=== PATIENT | female | born 1965 | race Hispanic/Latino ===

== ENCOUNTER 2021-09-14 18:55 | Emergency (ER) | payer SELFPAY ==
[2021-09-14 20:46] LABS: Urine Blood Trace-lysed (Negative); Urine Glucose Negative (Negative); Urine Protein Negative (Negative); Urine Specific Gravity 1.015 (1.005-1.030)
[2021-09-14 20:53] LABS: Urine Specific Gravity/Preg 1.015 (1.005-1.030)
[2021-09-14] MEDS ORDERED: ONDANSETRON 4 MG/2 ML VIAL ONE (21:38)
[2021-09-14 21:39] LABS: Absolute Lymphocytes (CBC) 2.6 K/uL (0.7-4.9); Hematocrit 40.3 % (36.0-45.0); Lymphocytes % 35.6 % (15.3-44.8); MPV 7.7 fL (7.6-11.3); RBC Red Blood Cell Count 4.62 M/uL (3.86-4.86)
[2021-09-14] MEDS ORDERED: FAMOTIDINE 20 MG/2 ML VIAL IV ONE (21:39)
[2021-09-14 21:42] LABS: Urine Bacteria NONE SEEN /HPF (<20); Urine RBC NONE SEEN /HPF (NONE SEEN)
[2021-09-14 21:54] LABS: Albumin 3.9 g/dL (3.4-5.0); Bilirubin Total 0.4 mg/dL (0.2-1.0); Potassium 3.8 mmol/L (3.5-5.1); Protein, Total 7.8 g/dL (6.4-8.2)
[2021-09-14] MEDS ORDERED: MORPHINE 2 MG/ML SYR ONE (22:12)
--- NOTE | 2021-09-15 00:13 | EDPHYS ---
Physician Documentation [facility] Name: Ivania Pierre Age: 56 yrs Sex: Female : 1965 Arrival Date: 09/14/2021 Time: 18:57 Bed 16 Private MD: ED Physician Colin Raines HPI: 09/14 20:55 This 56 yrs old Female presents to ER via Ambulatory with complaints of cp Abdominal Pain. Historical: - Allergies: 19:36 No Known Allergies; lp1 - Home Meds: 19:36 None [Active]; lp1 - PMHx: 19:36 None; lp1 - PSHx: 19:36 None; lp1 - Immunization history:: Client reports receiving the 2nd dose of the Covid vaccine. - Social history:: Smoking status: Patient denies any tobacco usage or history of. ROS: 21:00 Constitutional: Negative for body aches, chills, fever, poor PO intake. cp 21:00 Abdomen/GI: Positive for abdominal pain, nausea, of the epigastric area and right upper cp quadrant, Negative for vomiting, diarrhea, constipation. 21:00 Eyes: Negative for injury, pain, redness, and discharge. cp 21:00 Cardiovascular: Negative for chest pain, edema, palpitations. 21:00 ENT: Negative for drainage from ear(s), ear pain, sore throat, difficulty swallowing, cp difficulty handling secretions. 21:00 Respiratory: Negative for cough, shortness of breath, wheezing. 21:00 Back: Positive for radiated pain, of the right mid back. 21:00 : Negative for urinary symptoms. 21:00 Skin: Negative for rash. 21:00 Neuro: Negative for altered mental status, dizziness, headache, weakness. 21:00 All other systems are negative. Exam: 21:10 Constitutional: The patient appears in no acute distress, alert, awake, cp non-diaphoretic, non-toxic, well developed, well nourished. 21:10 Head/Face: Normocephalic, atraumatic. cp 21:10 Eyes: Periorbital structures: appear normal, Conjunctiva: normal, no exudate, no injection, Sclera: no appreciated abnormality, Lids and lashes: appear normal, bilaterally. 21:10 ENT: External ear(s): are unremarkable, Nose: is normal, Mouth: Lips: moist, Oral mucosa: moist, Posterior pharynx: Airway: no evidence of obstruction, patent. 21:10 Chest/axilla: Inspection: normal. 21:10 Cardiovascular: Rate: normal, Rhythm: regular, Edema: is not appreciated, JVD: is not appreciated. 21:10 Respiratory: the patient does not display signs of respiratory distress, Respirations: normal, no use of accessory muscles, no retractions, labored breathing, is not present, Breath sounds: are clear throughout, no decreased breath sounds, no stridor, no wheezing. 21:10 Abdomen/GI: Inspection: distension, that is mild, in the abdomen diffusely, Bowel sounds: active, all quadrants, Palpation: soft, in all quadrants, moderate abdominal tenderness, in the epigastric area and right upper quadrant, rebound tenderness, is not appreciated, involuntary guarding, is not appreciated. 21:10 Back: CVA tenderness, is absent. 21:10 Skin: cellulitis, is not appreciated, no rash present. Vital Signs: 19:37 BP 127 / 62; Pulse 70; Resp 18; Temp 99.4(O); Pulse Ox 100% on R/A; Weight 63.5 kg (R); lp1 Pain 02/02; 09/15 01:38 BP 013 / 267; Pulse 66; Resp 18; Temp 97.8; ke1 MDM: 09/14 20:[address] [facility] 09/15 00:11 Data reviewed: vital signs, nurses notes, lab test result(s), radiologic studies, CT cp scan, ultrasound. 00:11 Differential diagnosis: cholecystitis, Cholelithiasis, gastritis, gastroesophageal cp reflux disease, pancreatitis, Peptic Ulcer Disease, Perf. Duodenal Ulcer, Perf. Gastric Ulcer, Pyelonephritis, Ureterolithiasis, urinary tract infection, pancreatitis. Counseling: I had a detailed discussion with the patient and/or guardian regarding: the historical points, exam findings, and any diagnostic results supporting the discharge/admit diagnosis, lab results, radiology results, the need for outpatient follow up, a cardiac rehabilitation program director, to return to the emergency department if symptoms worsen or persist or if there are any questions or concerns that arise at home. Response to treatment: the patient's symptoms have markedly improved after treatment, and as a result, I will discharge patient. Special discussion: Based on the patient's Hx, exam, and Dx evaluation, there is no indication for emergent surgery or inpatient Tx. It is understood by the patient/guardian that if the Sx's persist or worsen they need to return immediately for re-evaluation. 09/14 20:46 Order name: Urine --Ancillary (enter results); Complete Time: 22:25 kj1 09/14 20:47 Order name: Urine Dipstick-Ancillary; Complete Time: 22:25 EDMS 09/14 20:57 Order name: CBC with Diff; Complete Time: 22:25 cp 09/14 20:57 Order name: CMP; Complete Time: 22:25 cp 09/15 00:48 Interpretation: Normal except: CL 110; GFR 88; GLOB 3.9; A/G 1.0. cp 09/14 20:57 Order name: Lipase; Complete Time: 22:25 cp 09/14 20:57 Order name: Urine Microscopic Only; Complete Time: 22:25 cp 09/14 20:57 Order name: IV Saline Lock; Complete Time: 21:32 cp 09/14 21:16 Order name: CT Abd/Pelvis - IV Contrast Only cp 09/14 23:21 Order name: US Abdomen Limited cp 09/14 20:57 Order name: Labs collected and sent; Complete Time: 21:32 cp 09/14 20:57 Order name: Urine Dipstick-Ancillary (obtain specimen); Complete Time: 21:32 cp Administered Medications: 09/14 21:40 Drug: Pepcid (famotidine) 20 mg Route: IVP; Site: left antecubital; ke1 21:40 Drug: Zofran (Ondansetron) 4 mg Route: IVP; Site: left antecubital; ke1 22:17 Drug: morphine 2 mg Route: IVP; Site: left antecubital; ke1 23:21 CANCELLED (Physician Discretion): GI Cocktail without - (Maalox Suspension 30 cp ml, Lidocaine Liquid 2 % 15 ml) PO once 09/15 01:30 Drug: GI Cocktail without - (Maalox Suspension 30 ml, Lidocaine Liquid 2 % 15 ke1 ml) Route: PO; Disposition Summary: 09/15/21 00:12 Discharge Ordered Location: Home cp Problem: new cp Symptoms: have improved cp Condition: Stable cp Diagnosis - Epigastric pain cp Followup: cp - With: Lupe Jewell MD - When: 2 - 3 days - Reason: Recheck today's complaints Discharge Instructions: - Discharge Summary Sheet cp - Abdominal Pain, Adult cp - Gastroesophageal Reflux Disease, Adult cp Forms: - Medication Reconciliation Form cp - Thank You Letter cp - Antibiotic Education cp - Prescription Opioid Use cp Prescriptions: - Protonix 40 mg Oral Tablet - take 1 tablet by ORAL route once daily; 30 tablet; Refills: 0, Product cp Selection Permitted - Zofran 4 mg Oral Tablet - take 1 tablet by ORAL route every 12 hours As needed; 20 tablet; Refills: 0, cp Product Selection Permitted Signatures: Dispatcher [employer] EDMS Colin Raines MD MD cha Pena, Laura RN RN lp1 Colin Gonzalez PA PA cp Ebrottie, Kouassi, RN RN ke1 Jenny Delong PA PA sb3 Corrections: (The following items were deleted from the chart) 09/14 23:21 23:20 GI Cocktail without - (Maalox 30 ml, Lidocaine 2 % 15 ml) PO once cp ordered. cp
--- NOTE | 2021-09-15 00:13 | ER ---
Nurse's Notes [facility] [place] Name: Ivania Pierre Age: 56 yrs Sex: Female : 1965 Arrival Date: 09/14/2021 Time: 18:57 Bed 16 Private MD: Diagnosis: Epigastric pain Presentation: 09/14 19:34 Chief complaint: Patient states: Upper right abdominal pain x 2 days, worse today, with lp1 nausea; Denies fever, vomiting;. Coronavirus screen: At this time, the client does not indicate any symptoms associated with coronavirus-19. Ebola Screen: No symptoms or risks identified at this time. Risk Assessment: Do you want to hurt yourself or someone else? Patient reports no desire to harm self or others. Onset of symptoms was September 14, 2021. 19:34 Acuity: LIVIA 3 lp1 19:34 Method Of Arrival: Ambulatory lp1 19:37 Initial Sepsis Screen: Does the patient meet any 2 criteria? No. Patient's initial lp1 sepsis screen is negative. Does the patient have a suspected source of infection? No. Patient's initial sepsis screen is negative. Triage Assessment: 21:40 General: Behavior is appropriate for age. General: Appears uncomfortable. GI: Abdomen ke1 is round non-distended. Historical: - Allergies: 19:36 No Known Allergies; lp1 - Home Meds: 19:36 None [Active]; lp1 - PMHx: 19:36 None; lp1 - PSHx: 19:36 None; lp1 - Immunization history:: Client reports receiving the 2nd dose of the Covid vaccine. - Social history:: Smoking status: Patient denies any tobacco usage or history of. Screenin:34 Abuse screen: Denies threats or abuse. Nutritional screening: No deficits noted. ke1 Tuberculosis screening: No symptoms or risk factors identified. Fall Risk No fall in past 12 months (0 pts). No secondary diagnosis (0 pts). IV access (20 points). Ambulatory Aid- None/Bed Rest/Nurse Assist (0 pts). Gait- Normal/Bed Rest/Wheelchair (0 pts) Mental Status- Oriented to own ability (0 pts). Assessment: 21:34 Pain: Complains of pain in abdomen. ke1 21:40 GI: Bowel sounds present X 4 quads. Abd is soft Abd is non tender. ke1 Vital Signs: 19:37 BP 127 / 62; Pulse 70; Resp 18; Temp 99.4(O); Pulse Ox 100% on R/A; Weight 63.5 kg (R); lp1 Pain 10/; 09/15 01:38 BP 013 / 267; Pulse 66; Resp 18; Temp 97.8; ke1 ED Course: 09/14 18:57 Patient arrived in ED. ds1 19:05 Colin Gonzalez PA is PHCP. cp 19:05 Kenny Daniels MD is Attending Physician. cp 19:31 Arm band placed on left wrist. lp1 19:35 Triage completed. lp1 20:34 Attending Physician role handed off by Kenny Daniels MD orlin 20:34 Colin Raines MD is Attending Physician. orlin 21:04 Ofe Johnston, KWESI is Primary Nurse. ke1 21:32 Inserted saline lock: 20 gauge in left antecubital area, using aseptic technique. ke1 21:40 Bed in low position. Call light in reach. Side rails up X 1. ke1 22:20 CT Abd/Pelvis - IV Contrast Only In Process Unspecified. EDMS 09/15 00:11 Lupe Jewell MD is Referral Physician. cp 00:16 US Abdomen Limited In Process Unspecified. EDMS 01:39 No provider procedures requiring assistance completed. IV discontinued. ke1 Administered Medications: 09/14 21:40 Drug: Pepcid (famotidine) 20 mg Route: IVP; Site: left antecubital; ke1 21:40 Drug: Zofran (Ondansetron) 4 mg Route: IVP; Site: left antecubital; ke1 22:17 Drug: morphine 2 mg Route: IVP; Site: left antecubital; ke1 23:21 CANCELLED (Physician Discretion): GI Cocktail without - (Maalox Suspension 30 cp ml, Lidocaine Liquid 2 % 15 ml) PO once 09/15 01:30 Drug: GI Cocktail without - (Maalox Suspension 30 ml, Lidocaine Liquid 2 % 15 ke1 ml) Route: PO; Medication: 09/14 19:39 VIS not applicable for this client. lp1 Outcome: 21:40 Discharged to home ambulatory. ke1 21:40 Condition: good 21:40 Discharge instructions given to patient. 09/15 00:12 Discharge ordered by MD. cuevas 01:40 Patient left the ED. ke1 Signatures: Dispatcher [employer] EDColin Tavarez MD MD cha Sanford, Demi ds1 Soumya Mccabe, RN RN lp1 Colin Gonzalez, Ofe Meza cp, RN RN ke1 Corrections: (The following items were deleted from the chart) 01:40 01:38 General: Appears ke1 ke1
[2021-09-15] MEDS ORDERED: MAGNES/ALUMIN/SIMET 30ML UCUP ONE (01:32)
[2021-09-15] MEDS ORDERED: LIDOCAINE VISCOUS 2% SOLN 15 ML UDC ONE (01:32)
[2021-09-15 01:48] VITALS: BP 127/62; O2SAT 100
[2021-09-15 01:50] VITALS: TEMP 97.8
--- NOTE | 2021-09-15 13:27 | RAD REPORT ---
EXAM DESCRIPTION: Abdomen Pelvis W Contrast RadLex: CT ABDOMEN PELVIS WITH IV CONTRAST CLINICAL HISTORY: Epigastric pain. COMPARISON: None. TECHNIQUE: CT of the abdomen and pelvis was performed following intravenous administration of iodina sam contrast. Arterial phase images to the abdomen, and portal venous phase images through the abdome n and pelvis were obtained. Oral contrast was not administered. Axial, coronal, and sagittal soft tis luis window reconstructions were created and sent to PACS. This exam was performed according to our departmental dose-optimization program, which includes autom ated exposure control, adjustment of the mA and/or kV according to patient size and/or use of iterati ve reconstruction technique. FINDINGS: Thoracic: No significant abnormality. Hepatobiliary: No concerning hepatic lesion identified. The portal veins are patent. The gallbladder is unremarkable. No biliary ductal dilatation. Pancreas: Unremarkable. Spleen: Unremarkable. Gastrointestinal: No evidence of bowel obstruction or perienteric inflammation. The appendix is harjit l. Adrenals: No abnormality identified in either adrenal gland. Renal: No concerning parenchymal abnormality in either kidney. Superior right renal 1.5 cm simple cys t. No hydronephrosis or urolithiasis. Bladder/Reproductive: Unremarkable appearance of the urinary bladder by CT technique. Suspected uteri ne fibroids, measuring up to 3.5 cm at the right uterine fundus. Vascular/Lymphatics: No lymphadenopathy identified by CT size criteria. Abdominal aorta is normal in caliber. Musculoskeletal: No concerning osseous lesion identified. Fluid / peritoneum: No significant free fluid. No free intraperitoneal air identified. IMPRESSION No acute abnormality identified in the abdomen or pelvis by CT.. Electronically signed by: Brigida Miranda MD 09/14/2021 10:56 PM CDT Due to temporary technical issues with the PACS/Fluency reporting system, reports are being signed by the in house radiologist without review as a courtesy to ensure prompt reporting. The interpreting r adiologist is fully responsible for the content of the report.
--- NOTE | 2021-09-15 13:28 | RAD REPORT ---
EXAM DESCRIPTION: Abdomen Exam Limited US Abdomen Limited US Right Upper Abdomen CLINICAL HISTORY: Abdominal pain COMPARISON: CT Abdomen/Pelvis With Contrast 09/14/2021 TECHNIQUE: Grayscale, color Doppler, and duplex Doppler images of right upper abdomen. FINDINGS: No significant free fluid. Liver parenchyma diffusely markedly hyperechoic. Common bile duct measuring 4 mm diameter and within normal limits. No intra or extrahepatic biliary ductal dilatation. Gallbladder moderately distended. Gallbladder otherwise unremarkable without evidence of stones, sonographic Olvera sign, or inflammati on. Pancreas not well visualized due to overlying bowel gas. IMPRESSION: Diffuse markedly hyperechoic liver parenchyma. No significant fatty infiltration on recent CT abdomen/pelvis. This may therefore represent hepatocellular disease. Electronically signed by: Jason Augustin MD 09/15/2021 12:34 AM CDT Due to temporary technical issues with the PACS/Fluency reporting system, reports are being signed by the in house radiologist without review as a courtesy to ensure prompt reporting. The interpreting r adiologist is fully responsible for the content of the report.
== END 2021-09-15 01:40 | disposition home or self-care (01) ==
LOC: ER 18:55
DX: R10.13 Epigastric pain (principal)
CPT/HCPCS: 36415; 74177; 76705; 80053; 81003; 81015; 81025; 83690; 85025; 96374; 96375; 99283; J2270; J2405; J3490; Q9967

== ENCOUNTER 2021-11-19 08:10 | Day surgery (SDC) | payer SELFPAY ==
[2021-11-19] MEDS ORDERED: FENTANYL CITR 100 MCG/2 ML ONE (08:38)
[2021-11-19] MEDS ORDERED: LIDOCAINE 2% MPF 5 ML VIAL ONE (08:38)
[2021-11-19] MEDS ORDERED: ROCURONIUM 50 MG/5 ML VIAL IV ONE (08:38)
[2021-11-19] MEDS ORDERED: propofoL 200 MG/20 ML VIAL IV ONE (08:38)
[2021-11-19] MEDS ORDERED: MIDAZOLAM HCL 2 MG/2 ML INJ ONE (08:39)
[2021-11-19] MEDS ORDERED: ONDANSETRON 4 MG/2 ML VIAL ONE (08:39)
[2021-11-19 08:40] LABS: Hematocrit 40.9 % (36.0-45.0); Lymphocytes % 34.9 % (15.3-44.8); MCV 86.4 fL (80-100); MPV 7.1 fL (7.6-11.3); RBC Red Blood Cell Count 4.74 M/uL (3.86-4.86)
[2021-11-19] MEDS ORDERED: Ringers Lactate 1,000 ML IV ONE (08:41)
[2021-11-19 08:55] LABS: Albumin 3.8 g/dL (3.4-5.0); Bilirubin Direct 0.2 mg/dL (0-0.2); Bilirubin Total 1.2 mg/dL (0.2-1.0); Potassium 3.8 mmol/L (3.5-5.1)
[2021-11-19 09:02] LABS: SARS-CoV-2 Antigen Rapid Res Negative (Negative)
[2021-11-19] MEDS: CEFOXITIN SODIUM 1 GM/VIAL ONE ×2 (09:07→09:31)
--- NOTE | 2021-11-19 09:20 | RAD REPORT ---
EXAM DESCRIPTION: RAD - Chest Single View - 11/19/2021 8:45 am CLINICAL HISTORY: PRE PROCEDURE SCREENING COMPARISON: None TECHNIQUE: AP portable chest image was obtained 11/19/2021 8:45 am . FINDINGS: Lungs are clear. No hilar mass or lymphadenopathy. No chest film findings to suspect curre nt or prior TB infection. Heart and vasculature are normal. No measurable pleural effusion and no pneumothorax. No acute bony a bnormality seen. No acute aortic findings suspected. IMPRESSION: No acute cardiopulmonary process.
[2021-11-19] MEDS ORDERED: dexAMETHasone 4 MG/ML VIAL ONE (09:54)
[2021-11-19] MEDS ORDERED: EPHEDRINE SULF 50 MG/ML VIAL ONE (10:09)
--- NOTE | 2021-11-19 10:17 | P.BOP ---
Preoperative diagnosis: RUQ abd pain, cholecystitis, biliary dyskinesia Postoperative diagnosis: same, acute cholecystitis Primary procedure: Laparoscopic cholecystectomy Seamer Operator: MILDRED MARTINS (COLORIST DYER) Estimated blood loss: <10cc Specimen: gb Findings: as above, GB wall edema Anesthesia: General Complications: None Transferred to: Recovery Room Condition: Good
[2021-11-19] MEDS ORDERED: GLYCOPYRROLATE 0.2 MG/ML SYR ONE (10:20)
[2021-11-19] MEDS ORDERED: NEOSTIGMINE 1 MG/ML -10 ML VIAL ONE (10:22)
[2021-11-19] MEDS ORDERED: KETOROLAC 30 MG/ML INJ ONE (10:22)
[2021-11-19 11:29] VITALS: BP 119/61; TEMP 97; O2SAT 96
[2021-11-19] MEDS ORDERED: CODEINE 30MG/APAP 300MG TAB ONE (11:46)
--- NOTE | 2021-11-19 15:12 | OP ---
Date of Procedure: 11/19/2021 Surgeon: Dave Puente MD Vp Product Management: MITCHELL Sullivan. Preoperative Diagnoses: Right upper quadrant abdominal pain, cholecystitis, biliary dyskinesia. Postoperative Diagnoses: Acute cholecystitis, right upper quadrant abdominal pain, biliary dyskinesi a. Procedure: Laparoscopic cholecystectomy. Estimated Blood Loss: Less than 10 mL. Specimen: Gallbladder. Findings: Gallbladder wall edema with adhesions of omentum to it. Anesthesia: General plus local. Indication: This is the case of a female, who comes to us with epigastric right upper quadrant pain radiating to the back, postprandial. The patient has imaging done and a HIDA scan and she claimed wi th the family that she has duplication of symptoms with the test. The patient diagnosed with biliary dyskinesia. Benefits, alternatives, and risks of laparoscopic possible open cholecystectomy as 1 of the options were explained. They want to do that with benefits, alternatives, and risks fully expla ined include, but not limited to infection, bleeding, damage to adjacent structures, anesthesia compl ication, choledocholithiasis, bile leak, pancreatitis, DE, and even . She also understands this may not relieve any symptoms. She might need more than one surgical intervention. She understood, signed a consent. Procedure In Detail: The patient was brought to the operating room, placed in supine position. Anes thesia was done without complication. Abdominal area was prepped and draped in the usual sterile fas hion. Marcaine 0.5% was injected for local anesthetic followed by sharp incision of the skin in the infraumbilical region. The incision was carried down to fascia, which was opened under direct vision . Peritoneum was encountered, opened under direct vision. Vicryl #1 placed inside the fascia. Coy on trocar was carefully introduced. Pneumoperitoneum was obtained. I placed 3 more trocars, 5 mm ea ch one of them in the epigastric right upper quadrant area under direct visualization. This allowed me to put a grasper in the fundus of the gallbladder, another grasper in the infundibulum, retracting the gallbladder in the inferolateral fashion, exposing the triangle of Calot, and obtaining critical view. Before we did that, we have to remove the omental adhesions to the gallbladder consistent wit h cholecystitis to get the critical view. Cystic duct and cystic artery were clearly isolated, freed circumferentially, and a connection between those and the gallbladder were clearly identified. I pr oceeded to ligate those by using at least 3 clips proximal, 1 clip distal, ligation in the middle. S rina was done with the cystic artery. No bile leak. No bleeding. The gallbladder was removed from t he liver using Bovie cauterizer and removed from abdominal cavity using EndoCatch through umbilical i ncision. Cameras were placed once again. Area was inspected. No bile leak. No bleeding. Clips we re intact. At that moment, I proceeded to remove the trocars under direct vision. Deflated the pneu moperitoneum. Closed the fascia with #1 Vicryl. Irrigated the subcutaneous tissue, closed that with 3-0 chromic and skin approximated. Sponge count, instrument counts correct. The patient tolerated the procedure well. The patient was sent to recovery in stable condition. LEOLA/MICK Voice ID: [id number] Report ID: [id number]
--- NOTE | 2021-11-19 15:12 | DS ---
Date of Discharge: 11/19/2021 Diagnoses: Right upper quadrant abdominal pain, acute cholecystitis, biliary dyskinesia. Procedure: Laparoscopic cholecystectomy. Disposition: Home. Activity: As tolerated. No heavy lifting. Plan: Follow up in my office in 1 week. Call for appointment at [phone]. Keep area dry for 48 ольга rs, then may shower. Keep Steri-Strip intact. Medications: Include Tylenol No.3 q.4 hours p.r.n. pain. LEOLA/MICK Voice ID: [id number] Report ID: [id number]
--- NOTE | 2021-11-19 16:31 | EKG ---
Test Date: 2021-11-19 Test Time: 08:57:13 Mechanic Welder Truck Driver: EMI MEASUREMENT RESULTS: Intervals: Rate: 64 MN: 126 QRSD: 70 QT: 394 QTc: 406 [place]: P: 24 MN: 126 QRS: 12 T: 20 INTERPRETIVE STATEMENTS: Normal sinus rhythm Normal ECG No previous ECG available for comparison Electronically Signed On 11-19-21 16:30:21 CDT by Dileep Alfredo
== END 2021-11-19 12:05 | disposition home or self-care (01) ==
LOC: OR 08:10
PROVIDERS: ATTEND Surgery
PROC: 0FT44ZZ Resection of Gallbladder, Percutaneous Endoscopic Approach (ICD-10-PCS; principal; 2021-11-19 10:45)
DX: K80.10 Calculus of gallbladder with chronic cholecystitis without obstruction (principal); K82.8 Other specified diseases of gallbladder; R10.11 Right upper quadrant pain; Z20.822 Contact with and (suspected) exposure to COVID-19
CPT/HCPCS: 36415; 71045; 80048; 80076; 82150; 83690; 85025; 87811; 88304; 93005; J0694; J1100; J2250; J2405; J2704; J2710; J3010; J7120

== ENCOUNTER 2025-02-01 10:55 | Day surgery (SDC) | payer OTHER ==
[2025-01-31 13:59] LABS: Absolute Lymphocytes (CBC) 2.3 K/uL (0.7-4.9); Hematocrit 40.9 % (36.0-45.0); Hemoglobin 13.7 g/dL (12.0-15.0); MCH 29.3 pg (27.0-35.0); MCHC 33.6 g/dL (32.0-36.0); MCV 87.2 fL (80-100); MPV 7.8 fL (7.6-11.3); Nucleated RBC Absolute Count 0.0 (0-0); Nucleated Red Blood Cells % 0.1 % (0-0); RBC Red Blood Cell Count 4.69 M/uL (3.86-4.86); White Blood Count 5.90 thou/uL (4.3-10.9)
[2025-01-31 14:11] LABS: Anion Gap 6.8 mEq/L (5.0-15.0); BUN Blood Urea Nitrogen 13.0 mg/dL (7-18); Glucose Level 139.0 mg/dL (74-106); Potassium 3.8 mEq/L (3.5-5.1)
[2025-02-01] MEDS ORDERED: ONDANSETRON 4 MG/2 ML VIAL ONE (11:11)
[2025-02-01] MEDS ORDERED: FENTANYL CITR 100 MCG/2 ML ONE (11:12)
[2025-02-01] MEDS ORDERED: LIDOCAINE 2% MPF 5 ML VIAL ONE (11:12)
[2025-02-01] MEDS ORDERED: MIDAZOLAM HCL 2 MG/2 ML INJ ONE (11:12)
[2025-02-01] MEDS: Ringers Lactate 1,000 ML IV ONE (11:20)
[2025-02-01] MEDS ORDERED: LIDOCAINE HCL/EPINEPHRINE 20 ML MDV ONE (11:22)
[2025-02-01] MEDS ORDERED: EPHEDRINE SULF 50 MG/ML VIAL ONE (13:20)
[2025-02-01 15:31] VITALS: BP 117/73; O2SAT 96
[2025-02-01 15:32] VITALS: TEMP 97
--- NOTE | 2025-02-01 21:54 | OP ---
Date of Procedure: 02/01/2025 Surgeon: Dorita Queen MD Disease Control Inspector: No certified surgical first assistant. Preoperative Diagnoses: Endometrial polyp and leiomyoma. Postoperative Diagnoses: Endometrial polyp and leiomyoma. Procedures Performed: Hysteroscopy with polypectomy and myomectomy using a MyoSure device, and D and C. Anesthesia: General with LMA. Complications: No complications. Drains: No drains. Specimens: Endometrial curettings with endometrial polyp and myoma. Condition: The patient's condition is stable. Findings: There was a 1.5 cm polyp on the right lateral wall and the posterior wall and a 2 cm anter ior wall type 1 leiomyoma. All of them were removed completely. Indications: The patient is a 59-year-old presented with an ultrasound finding of endometrial thicke sonia. Diagnostic hysteroscopy in the office showed a polyp and myoma. So, we discussed the plan to evaluate this to rule out atypia or malignancy and also to remove the myoma for further evaluation. She was consented and brought to the hospital. Description Of Procedure: She was taken back to the OR and placed in supine fashion on the operating table. After general anesthesia was given, she was placed in a dorsal lithotomy position. Speculum was placed to expose the cervix. Anterior lip grasped with a single-tooth tenaculum. She was prepp ed and draped in a sterile fashion first, and the cervix was dilated to 16-Kyrgyz. Then, a MyoSure d evice was primed and inserted through the cervical canal into the uterine cavity. After full visuali zation and insertion into the cavity, the outlet was removed. Then, a MyoSure device was taken. The polypectomy and myomectomy were performed. The endometrium was also curetted. After this was compl ete, the instruments were removed. Instrument, needle, and sponge counts were correct at the end of the case. The fluid deficit was 155 mL of normal saline. The patient was recovered from anesthesia and transferred to recovery room in a stable condition. She will follow up in 1 week for path result s and then we will plan on the next step. Family updated. CAROL/MICK Voice ID: [id number] Report ID: [id number]
== END 2025-02-01 15:26 | disposition home or self-care (01) ==
LOC: OR 10:55
PROVIDERS: ATTEND Obstetrics & Gynecology
PROC: 0UB98ZZ Excision of Uterus, Via Natural or Artificial Opening Endoscopic (ICD-10-PCS; principal; 2025-02-01 12:45)
DX: D25.9 Leiomyoma of uterus, unspecified (principal); N95.0 Postmenopausal bleeding; N84.0 Polyp of corpus uteri
CPT/HCPCS: 58558; 93005; 85025; 80048; 36415; 88305; J2704; J2003; J2250; J3010; J2405; J7120